=== PATIENT | female | born 1975 | race Caucasian/White ===

== ENCOUNTER 2019-08-18 22:44 | Emergency (ER) | payer OTHER, SELFPAY ==
[2019-08-18 23:05] VITALS: BP 154/73; PULSE 88; RESP 18; TEMP 36.6; O2SAT 99; BMI 31.1
[2019-08-19 04:26] VITALS: BP 129/75; PULSE 74; RESP 18; TEMP 36.6; O2SAT 97
[2019-08-19 04:29] LABS: Add Manual Diff / Slide Review NO; Basophils Absolute Auto 100 /uL (0-100); Basophils Percent Auto 0.7 % (0-2); Eosinophils Absolute Auto 200 /uL (0-450); Eosinophils Percent Auto 2.3 % (2-4); Hematocrit 39.2 % (36-46); Hemoglobin 12.8 g/dL (12.0-16.0); Lymphocytes Absolute Auto 3200 /uL (1100-4500); Lymphocytes Percent Auto 30.1 % (25-40); Mean Corpuscular HGB Conc 32.5 % (30-36); Mean Corpuscular Hemoglobin 26.4 PG (26-34); Mean Corpuscular Volume 81.2 fL (80-100); Monocytes Absolute Auto 700 /uL (0-900); Monocytes Percent Auto 6.7 % (3-14); Neutrophils Absolute Auto 6500 /uL (1500-7000); Neutrophils Percent Auto 60.2 % (50-75); Platelet Count 340 X10^3/uL (150-400); Red Blood Cell Count 4.83 X10^6/uL (4.0-5.2); Red Cell Distribution Width 15.3 % (11.6-14.8); White Blood Cell Count 10.8 X10^3/uL (4.5-11.0)
--- NOTE | 2019-08-19 04:29 | ED_ITS ---
HPI - Female Genitourinary General Chief complaint: Urogenital-Female Stated complaint: sharp shooting pains rt side to back Time Seen by Provider: 08/19/19 04:28 Source: patient Mode of arrival: Ambulatory Limitations: no limitations History of Present Illness HPI Narrative: 44-year-old female comes emergency complaint of shooting pains on the right side of her back. Patient states it started over the last day. She has not had fevers she has been nauseated she has not been vomiting. She states she has had no big changes in bowel movements other than she has been having some blood in her stool that is bright red the past week intermittently. She does not complain of any right lower quadrant pain. States the pain is more in the flank back region. She states that she has had some free group Q-wave no u rgency or dysuria. She has not noticed any color change to her urine. She has a history of hysterectomy and has had EGD and colonoscopy and was told that she had an ulcer in her small intestine and was on multiple medications in the past several years ago. She states at that time she had a lot of heartburn type symptoms and that this feels different. She is allergic to Wellbutrin, denies tobacco, alcohol or illicit. She is accompanied by her . Related Data Allergies Allergy/AdvReac Type Severity Reaction Status Date / Time bupropion [From Wellbutrin] Allergy Rash Verified 08/18/19 23:09 Review of Systems Review of Systems ROS Unobtainable: All systems reviewed & are unremarkable except as noted in HPI and below Patient History alcohol intake frequency: 0-2 drinks per day Substance Use Type: does not use Exam Narrative Exam Narrative: GENERAL: Alert and oriented x three, obese, well-appearing female in mild distress. HEENT: Head normocephalic, atraumatic, EOMI, pupils reactive, face symmetric, moist mucous membranes NECK: Supple, full range of motion CARDIOVASCULAR: Regular rate and rhythm without murmurs, rubs or gallops. RESPIRATORY: Breath sounds equal bilaterally, no wheezes rales or rhonchi. ABDOMEN: Soft, patient has mild right upper quadrant tenderness notice as well as left lower quadrant tenderness. Normoactive bowel sounds all 4 quadrants. No guarding or rebound, rigidity, no mass. Nondistended : No CVA tenderness bilaterally. EXTREMITIES: Normal range of motion, no clubbing or edema. Neurovascularly intact NEUROLOGICAL: Cranial nerves II through XII grossly intact. Moving all extremities SKIN: Warm, dry, no petechiae, no rashes or lesions. Initial Vital Signs Initial Vital Signs: Vital Signs Temperature 97.9 F 08/18/19 23:05 Pulse Rate 88 08/18/19 23:05 Respiratory Rate 18 08/18/19 23:05 Blood Pressure 154/73 H 08/18/19 23:05 Pulse Oximetry 99 08/18/19 23:05 Course Orders Ordered: ED Orders 08/19/19 04:15 Complete Blood Count AUTO DIFF Stat Comprehensive Metabolic Panel Stat Lipase Stat 08/19/19 04:40 CT kidney ureter bladder (KUB) Stat Discontinued Medications Hydrocodone Bitart/Acetaminophen ([place] 5/325) 1 tab PO NOW ONE Stop: 08/19/19 04:41 Last Admin: 08/19/19 04:45 Dose: 1 tab Documented by: EVERARDO Tramadol HCl (Ultram 50mg Prepack) 1 bottle MISC SEEINSTR ONE Stop: 08/19/19 05:53 Last Admin: 08/19/19 06:06 Dose: 1 bottle Documented by: EVERARDO Vital Signs Vital signs: Vital Signs - 8 hr 08/18/19 23:05 08/19/19 04:26 08/19/19 05:30 Temperature 97.9 F 97.9 F Pulse Rate 88 74 77 Respiratory Rate 18 18 18 Blood Pressure 154/73 H Blood Pressure [Left Arm] 129/75 113/69 Pulse Oximetry 99 97 99 MDM - Female Genitourinary Lab Data Attestation: I reviewed the patient's lab results. Result diagrams: 08/19/19 04:15 08/19/19 04:15 Labs: Lab Results 08/19/19 08/19/19 Range/Units 04:15 04:15 WBC 10.8 (4.5-11.0) X10^3/uL RBC 4.83 (4.0-5.2) X10^6/uL Hgb 12.8 (12.0-16.0) g/dL Hct 39.2 (36-46) % MCV 81.2 (80-100) fL MCH 26.4 (26-34) PG MCHC 32.5 (30-36) % RDW 15.3 H (11.6-14.8) % Plt Count 340 (150-400) X10^3/uL Neut % (Auto) 60.2 (50-75) % Lymph % (Auto) 30.1 (25-40) % [place] % (Auto) 6.7 (3-14) % Eos % (Auto) 2.3 (2-4) % Baso % (Auto) 0.7 (0-2) % Neut # (Auto) 6500 (2570-0664) /uL Lymph # (Auto) 3200 (1636-4823) /uL [place] # (Auto) 700 (0-900) /uL Eos # (Auto) 200 (0-450) /uL Baso # (Auto) 100 (0-100) /uL Sodium 140 (137-145) mmol/L Potassium 4.2 (3.4-5.1) mmol/L Chloride 104 (98-107) mmol/L Carbon Dioxide 26 (22-32) mmol/L BUN 12 (7-17) mg/dL Creatinine 0.80 (0.52-1.04) mg/dL Estimated GFR > 60.0 (>60) mL/min BUN/Creatinine Ratio 15.0 (6-22) Glucose 121 H (70-100) mg/dL Calcium 9.4 (8.4-10.2) mg/dL Total Bilirubin 0.3 (0.2-1.3) mg/dL AST 24 (14-36) IU/L ALT 21 (<35) IU/L Alkaline Phosphatase 102 (38-126) U/L Total Protein 8.0 (6.3-8.2) g/dL Albumin 4.4 (3.5-5.0) g/dL Globulin 3.6 (1.7-4.1) g/dL Albumin/Globulin Ratio 1.2 (1.0-2.8) Lipase 72 (23-300) U/L Point of Care Testing Test Results Negative Urine Dip Bedside Urine Glucose Negative Bedside Urine Bilirubin - Negative Bedside Urine Ketone - Negative Urine Specific [place] 1.010 Bedside Urine Occult Blood - Negative Bedside Urine pH 6.0 Bedside Urine Protein - Negative Bedside Urine Urobilinogen - Negative Bedside Urine Nitrite - Negative Bedside Urine Leukocytes - Negative Esterase Imaging Data CT scan - abdomen/pelvis: Radiologist's Impression: Mild hepatic steatosis with borderline hepatomegaly, constipation, small sliding hiatal hernia and fat containing umbilical hernia. Severely dysplastic left kidney. MDM Narrative Medical decision making narrative: Discussed with patient lab do not show any major abnormalities glucose is 121. Patient does have some hepatic steatosis, possible constipation changes fat containing umbilical hernia the severely dysplastic left kidney which patient was aware of. Patient's urine is negative with a negative . Patient received a dose of [place] which will not help any constipation she is having the she did have some blood in her stool and discussed she should likely have with colonoscopy repeated as it has been several years. Patient PCP is through the [facility] and she will f/u to have referral for scope, her last one was 2 years ago. Discussed return precautions. Tylenol prn for pain and may add ultram for breakthrough although should take stool softener. Patient feels comfortable with plan. Discharge Plan Departure Patient Disposition: Home Clinical Impression: Abdominal pain Qualifiers: Abdominal location: generalized Qualified Code(s): R10.84 - Generalized abdominal pain Instructions: DI for Abdominal Pain-Adult Activity Restrictions/Additional Instructions: Follow-up with your physician in the next 24-48 hours for recheck. Your labs do not show any major abnormalities, urine did not show any signs of infection today. CT shows some hepatic steatosis which could possibly cause some right upper quadrant pain but would be unlikely to cause left lower quadrant pain. Your left kidney is absent with a small amount dysplastic tissue and there does seem to be some changes that would be consistent with a small fat containing umbilical hernia which may be causing some of her discomfort. Take pain medication as prescribed, this medication can make you sleepy do not drive, perform hazardous activities or make any major decisions. Take a stool softener with this medication. Return to the ER for fevers greater 100.4 F, persistent vomiting, worsening bloody stools, worsening abdominal pain, flank pain, lightheadedness or passing out review new or concerning symptoms
[2019-08-19 04:36] LABS: Alanine Aminotransferase 21 IU/L (<35); Albumin 4.4 g/dL (3.5-5.0); Albumin Globulin Ratio 1.2 (1.0-2.8); Alkaline Phosphatase 102 U/L (38-126); Aspartate Aminotransferase 24 IU/L (14-36); Bilirubin Total 0.3 mg/dL (0.2-1.3); Blood Urea Nitrogen 12 mg/dL (7-17); Calcium 9.4 mg/dL (8.4-10.2); Carbon Dioxide 26 mmol/L (22-32); Chloride 104 mmol/L (98-107); Estimated Glomerular Filt Rate > 60.0 mL/min (>60); Globulin 3.6 g/dL (1.7-4.1); Glucose 121 mg/dL (70-100); HEMOLYSIS < 15 (0-50); Lipase 72 U/L (23-300); Potassium 4.2 mmol/L (3.4-5.1); Sodium 140 mmol/L (137-145)
--- NOTE | 2019-08-19 04:40 | DI.CT.S_ITS ---
PROCEDURE: CT KIDNEY URETER BLADDER (KUB) INDICATIONS: right flank pain, no hematuria, blood in stool TECHNIQUE: Noncontrast 5 mm thick sections acquired from the diaphragms to the symphysis. 5 mm thick coronal and sagittal reformats were then performed. For radiation dose reduction, the following was used: automated exposure control, adjustment of mA and/or kV according to patient size. COMPARISON: None. FINDINGS: Image quality: Excellent. Lung bases: Lung bases are clear. Heart size is normal. Small hiatal hernia. Urinary system: The right kidney is normal size without nephrolithiasis or hydronephrosis. The left kidney is absent. No hydroureter or ureteral calcifications. Normal urinary bladder wall thickness. No bladder calcifications. Other solid organs: Liver is mildly enlarged and minimally hypodense. Gallbladder appears normal. Pancreas is normal in contours. Spleen is normal in size. No adrenal nodules. Peritoneum and bowel: Unenhanced bowel loops demonstrate normal wall thickness and caliber. Normal appendix. No free fluid or air. Nodes and vessels: No retroperitoneal or mesenteric adenopathy by size criteria. Aorta and inferior vena cava are normal in caliber. Abdominal wall: Tiny fat containing umbilical hernia. Pelvis: No free pelvic fluid. No inguinal hernias or adenopathy. The uterus is absent. Bones: No suspicious bony lesions. No vertebral body compression fractures. IMPRESSION: 1. No CT evidence of acute process. 2. No obstructive uropathy or urinary calcifications. 3. Absent or severely atrophic left kidney and surgically absent uterus. 4. Minor hepatomegaly and hepatic steatosis. 5. Small hiatal hernia. 6. Concordant with preliminary report. Dictated by: Hollie Arias M.D. on 08/19/2019 at 8:09 Approved by: Hollie Arias M.D. on 08/19/2019 at 8:16
[2019-08-19] MEDS: HYDROCODONE/ACET 5/325 TABLET 1 TAB PO (04:45)
[2019-08-19 05:30] VITALS: BP 113/69; PULSE 77; RESP 18; O2SAT 99
[2019-08-19] MEDS: TRAMADOL 50 MG PREPACK 1 BOTTLE MISC (06:06)
[2019-08-19 06:36] VITALS: BP 112/68; PULSE 73; RESP 18; O2SAT 97
== END 2019-08-19 06:37 | disposition home or self-care (01) ==
PROVIDERS: Emergency Provider Emergency Medicine
DX: R10.84 Generalized abdominal pain (principal); K92.1 Melena
CPT/HCPCS: 36415; 74176; 80053; 81003; 81025; 83690; 85025; 99283; 99284

== ENCOUNTER 2019-08-20 14:32 | Emergency (ER) | payer OTHER, SELFPAY ==
[2019-08-20 14:39] VITALS: BP 141/84; PULSE 83; RESP 20; TEMP 36.8; O2SAT 99; BMI 31.1
--- NOTE | 2019-08-20 15:17 | ED.ABDPAIN ---
HPI - Abdominal Pain <DARYA Matthew - Last Filed: 08/20/19 22:10> General Chief Complaint: Abdominal Pain Stated Complaint: right side abdominal pain, blood in stool Time Seen by Provider: 08/20/19 14:35 Source: patient Mode of arrival: Ambulatory Limitations: no limitations History of Present Illness HPI narrative: This is a 44-year-old female, nonsmoker, who presents to ED with spouse with chief complaint of right upper quadrant and lateral side pain. She was evaluated in ED 2 nights ago on Sunday with similar discomfort in her right upper quadrant/side/flank discomfort. At that time, patient was told she has constipation, fat containing umbilical hernia, hepatic steatosis and severely dysplastic left kidney which patient is also aware of. Patient reports resolved urinary frequency which she experienced on Sunday. She feels little vertigo-like dizziness which she has history of. She denies fever, chills, nausea or vomiting. Patient reports the pain is pretty constant cramping and sharp in character and rates as 7/10 at this time. She was discharged to home with the tramadol but she has not started the medications. The difference she noticed today was bright rectal bleeding when she had flatulence earlier today. She had 1 bowel movement at work and noticed bright red rectal bleeding in a toilet, toilet tissue when she white with clots. Patient states she has known hemorrhoids and it comes and goes she had small bright red rectal bleeding once or twice last week when she wiped after the bowel movements. Patient denies chest pain, breathing difficulty, fainting episode. Patient denies family or personal history of colon cancer. Related Data Allergies Allergy/AdvReac Type Severity Reaction Status Date / Time bupropion [From Wellbutrin] Allergy Rash Verified 08/18/19 23:09 Review of Systems <DARYA Matthew - Last Filed: 08/20/19 22:10> Review of Systems Narrative: General: Denies fever, chills, fatigue, malaise, sweats. HEENT: Denies sinus pain, ear pain, sore throat, difficulty swallowing, (+) dizziness. Respiratory: Denies dyspnea, cough, wheezing, hemoptysis, sputum. Cardiovascular: Denies chest pain, palpitations, orthopnea, edema. Gastrointestinal: See HPI : Denies dysuria, (+) resolved one day of urinary frequency, incontinence, hematuria, urinary retention. Musculoskeletal: Denies weakness, joint pain or bony pain. Skin: Denies rash, skin lesions, or other. Neurologic: Denies weakness, headache, numbness, change in speech, confusion, seizures, incoordination. Psychiatric: No concerning psychosocial issues. 12-point review of systems is negative except for those stated above. Patient History <DARYA Matthew - Last Filed: 08/20/19 22:10> Medical History (Updated 08/20/19 @ 18:40 by DARYA Matthew) Constipation (Acute) Hemorrhoids (Acute) Migraine headache (Acute) Surgical History (Updated 08/20/19 @ 15:25 by DARYA Matthew) H/O: hysterectomy (Acute) Social History Smoking Status: Never smoker Smoking Status: Never smoker alcohol intake frequency: a few times a month Substance Use Type: does not use Exam <DARYA Matthew - Last Filed: 08/20/19 22:10> Narrative Exam Narrative: GEN: Alert, oriented x 3, well appearing and nourished, and in no acute distress. Head: Normal cephalic, atraumatic. No scalp or temporal tenderness, palpable mass or rash. EYES: Pupils are equal, round, and reactive to light and accommodation. Extraocular muscles are intact bilaterally. There is no subconjunctival hemorrhage, exudate and sclera non-icteric. ENT: Hearing grossly intact. Nose without bleeding, purulent discharge or deviation. Mucous membrane moist, no mucosal lesion. Throat without erythema, tonsillar hypertrophy or exudate. Uvula in midline, airway patent. Neck: Trachea in midline. No JVD, non-tender without lymphadenopathy. No masses or thyroid megaly. Supple, non-tender and no meningeal signs. CARDIAC: Normal regular rate and rhythm without murmurs, gallops, or rubs. No chest wall tenderness. No peripheral edema, cyanosis or pallor. Capillary refill is less than 2 seconds. RESPIRATORY: Lungs are clear to auscultate bilaterally. No cough, wheezes, rales, or rhonchi. No stridor, respiratory distress, increase work of breathing, or accessary muscle used. ABD: Abdomen soft, obese, TTP in right upper lateral quadrant below lower ribs and non-distended. No guarding or rebound tenderness to palpate. Bowel sounds are normal in all 4 quadrants. There is no palpable masses or organomegaly. EXT: Full painless ROM of all extremities with no loss of sensation, strength, effusion or edema. SKIN: Warm, dry, normal color for patient. No erythema, lesions or rash over visible areas. BACK: Nontender without deformity or crepitance. No flank tenderness. NEUROLOGICAL: Alert and oriented to place, time and person. Sensation and motor function intact bilaterally. No facial droops, dysphasia. PSYCHIATRIC: Good judgement and reason, without hallucinations, abnormal affect or abnormal behaviors during the examination. Initial Vital Signs Initial Vital Signs: Vital Signs Temperature 98.3 F 08/20/19 14:39 Pulse Rate 83 08/20/19 14:39 Respiratory Rate 08/20/19 14:39 Blood Pressure 141/84 H 08/20/19 14:39 Pulse Oximetry 99 08/20/19 14:39 <Miguel Mays DO - Last Filed: 08/21/19 08:53> Initial Vital Signs Initial Vital Signs: Vital Signs Temperature 98.3 F 08/20/19 14:39 Pulse Rate 83 08/20/19 14:39 Respiratory Rate 08/20/19 14:39 Blood Pressure 141/84 H 08/20/19 14:39 Pulse Oximetry 99 08/20/19 14:39 Scores <ELIZABETH MatthewP - Last Filed: 08/20/19 22:10> GCS [place] coma scale eye opening: Spontaneous [place] coma scale verbal response: Orientated [place] coma scale motor response: Obey commands [place] coma scale total score: 15 Course <DARYA Matthew Last Filed: 08/20/19 22:10> Orders Ordered: Discontinued Medications Sodium Chloride (Normal Saline 0.9%) 1,000 mls @ 150 mls/hr IV CONT RITO Last Admin: 08/20/19 15:46 Dose: 150 mls/hr Documented by: CAMERON Vital Signs Vital signs: Vital Signs - 8 hr 08/20/19 14:39 08/20/19 17:01 08/20/19 19:16 Temperature 98.3 F Pulse Rate 75 73 Pulse Rate [Right] 83 Respiratory Rate 20 Blood Pressure 123/68 Blood Pressure [Right Arm] 141/84 H 141/78 H Pulse Oximetry 99 98 99 <Miguel Mays DO - Last Filed: 08/21/19 08:53> Orders Ordered: Discontinued Medications Sodium Chloride (Normal Saline 0.9%) 1,000 mls @ 150 mls/hr IV CONT RITO Last Admin: 08/20/19 15:46 Dose: 150 mls/hr Documented by: CAMERON Vital Signs Vital signs: Vital Signs - 8 hr 08/20/19 14:39 08/20/19 17:01 08/20/19 19:16 Temperature 98.3 F Pulse Rate 75 73 Pulse Rate [Right] 83 Respiratory Rate 20 Blood Pressure 123/68 Blood Pressure [Right Arm] 141/84 H 141/78 H Pulse Oximetry 99 98 99 MDM - Abdominal Pain <DARYA Matthew - Last Filed: 08/20/19 22:10> Differential Diagnosis Differential diagnosis: Likely abdominal pain, constipation and other (Hemorrhoids, rectal fissure, gallstone, liver disease,) Medical Records Attestation: I reviewed the patient's medical records. Lab Data Attestation: I reviewed the patient's lab results. Result diagrams: 08/20/19 15:22 08/20/19 15:22 Labs: Lab Results 08/20/19 08/20/19 08/20/19 Range/Units 15:22 15:22 15:22 WBC 11.7 H (4.5-11.0) X10^3/uL RBC 4.64 (4.0-5.2) X10^6/uL Hgb 12.2 (12.0-16.0) g/dL Hct 37.2 (36-46) % MCV 80.1 (80-100) fL MCH 26.2 (26-34) PG MCHC 32.7 (30-36) % RDW 15.2 H (11.6-14.8) % Plt Count 342 (150-400) X10^3/uL Neut % (Auto) 71.9 (50-75) % Lymph % (Auto) 20.9 L (25-40) % [place] % (Auto) 5.4 (3-14) % Eos % (Auto) 1.1 L (2-4) % Baso % (Auto) 0.7 (0-2) % Neut # (Auto) 8400 H (8405-3053) /uL Lymph # (Auto) 2400 (6701-9243) /uL [place] # (Auto) 600 (0-900) /uL Eos # (Auto) 100 (0-450) /uL Baso # (Auto) 100 (0-100) /uL PT 12.6 (10.1-12.7) SECONDS INR 1.1 (0.9-1.3) APTT 33 (26.4-36.2) SECONDS Sodium 139 (137-145) mmol/L Potassium 3.8 (3.4-5.1) mmol/L Chloride 104 (98-107) mmol/L Carbon Dioxide 25 (22-32) mmol/L BUN 10 (7-17) mg/dL Creatinine 0.80 (0.52-1.04) mg/dL Estimated GFR > 60.0 (>60) mL/min BUN/Creatinine Ratio 12.5 (6-22) Glucose 104 H (70-100) mg/dL Calcium 9.4 (8.4-10.2) mg/dL Total Bilirubin 0.4 (0.2-1.3) mg/dL AST 30 (14-36) IU/L ALT 22 (<35) IU/L Alkaline Phosphatase 88 (38-126) U/L Total Protein 7.8 (6.3-8.2) g/dL Albumin 4.4 (3.5-5.0) g/dL Globulin 3.4 (1.7-4.1) g/dL Albumin/Globulin Ratio 1.3 (1.0-2.8) Lipase 47 (23-300) U/L Imaging Data US - abdomen: Radiologist's Impression: [address] [address] Ultrasound Report Signed Patient: Chastity Cramer [facility]#: [id number] : 1975Acct:[id number] Age/Sex: 44 / FDate of Service: 08/20/19 Loc: ED Accession Number: [id number] Procedure: US abdomen limited Ordering Provider: Surya Cohen PROCEDURE: US ABDOMEN LIMITED INDICATIONS: UPPER ABD PAIN, RUQ TECHNIQUE: Real-time focused scanning was performed of the abdomen, with image documentation. COMPARISON: [facility], CT, CT KIDNEY URETER BLADDER (KUB), 08/19/2019, 4:43. FINDINGS: Liver has a normal echotexture. No focal liver masses. Gallbladder is unremarkable. No stones or gallbladder wall thickening or fluid around the gallbladder Ryan sign. Gallbladder wall measures 1.9 mm. No dilated ducts. Common bile duct measures 2.8 mm. Visualized portions of the pancreas are unremarkable. Right kidney measures 13.8 cm. No stones identified. No hydronephrosis. IMPRESSION: Unremarkable right upper quadrant ultrasound. Dictated by: Satinder Charles M.D. on 08/20/2019 at 17:29 Approved by: Satinder Charles M.D. on 08/20/2019 at 17:31 MDM Narrative Medical decision making narrative: 44-year-old female return to ED after she was evaluated in [facility] ER 2 days ago with similar symptoms but today she noticed increasing bright red rectal bleeding with bowel movements when she had flatulence and bowel movement at work. Patient is hemodynamically stable without symptoms. Patient reports right upper quadrant and side pain and had not taken any medication, Tramadol, she was discharged to home with. Patient does report has history of external hemorrhoids. Physical exam was benign. Abdomen was soft, nondistended, obese, without rebound tenderness and intact bowel sounds. H&H is stable today as 37.2/80.1 with very mild increase in white count as 11.7. Normal coags results. Unremarkable chemistry results including liver function tests and bilirubin. Lipase was normal. To CT test 2 nights ago it indicated minor hepatomegaly and hepatic steatosis with small hiatal hernia. Today ultrasound on upper abdomen abdomen was obtained and indicates liver with normal echotexture and no liver masses. Gallbladder was unremarkable without stones or wall thickening or fluid around gallbladder. There was no dilated common bile duct. Pancreas was unremarkable. There was no hydronephrosis or stones visualized for kidney. Ultrasound was unremarkable today. Rectal exam showed superficial small fissure at 12:00 p.m. in her rectum without danni blood appreciated. Hemoccult test was negative. For and infection 2 days ago and repeat urine test was not done today. Patient advised to follow-up with primary care physician to follow-up with colonoscopy referral. Patient advised to avoid constipation. Patient advised to take [id number] Tylenol as needed for discomfort and tramadol for severe pain. Discussed with the patient and patient verbalized understanding and in agreement with treatment plan. Work off note provided for 2 days. <Miguel Mays DO - Last Filed: 08/21/19 08:53> Lab Data Labs: Lab Results 08/20/19 08/20/19 08/20/19 Range/Units 15:22 15:22 15:22 WBC 11.7 H (4.5-11.0) X10^3/uL RBC 4.64 (4.0-5.2) X10^6/uL Hgb 12.2 (12.0-16.0) g/dL Hct 37.2 (36-46) % MCV 80.1 (80-100) fL MCH 26.2 (26-34) PG MCHC 32.7 (30-36) % RDW 15.2 H (11.6-14.8) % Plt Count 342 (150-400) X10^3/uL Neut % (Auto) 71.9 (50-75) % Lymph % (Auto) 20.9 L (25-40) % [place] % (Auto) 5.4 (3-14) % Eos % (Auto) 1.1 L (2-4) % Baso % (Auto) 0.7 (0-2) % Neut # (Auto) 8400 H (8132-1365) /uL Lymph # (Auto) 2400 (7821-9583) /uL [place] # (Auto) 600 (0-900) /uL Eos # (Auto) 100 (0-450) /uL Baso # (Auto) 100 (0-100) /uL PT 12.6 (10.1-12.7) SECONDS INR 1.1 (0.9-1.3) APTT 33 (26.4-36.2) SECONDS Sodium 139 (137-145) mmol/L Potassium 3.8 (3.4-5.1) mmol/L Chloride 104 (98-107) mmol/L Carbon Dioxide 25 (22-32) mmol/L BUN 10 (7-17) mg/dL Creatinine 0.80 (0.52-1.04) mg/dL Estimated GFR > 60.0 (>60) mL/min BUN/Creatinine Ratio 12.5 (6-22) Glucose 104 H (70-100) mg/dL Calcium 9.4 (8.4-10.2) mg/dL Total Bilirubin 0.4 (0.2-1.3) mg/dL AST 30 (14-36) IU/L ALT 22 (<35) IU/L Alkaline Phosphatase 88 (38-126) U/L Total Protein 7.8 (6.3-8.2) g/dL Albumin 4.4 (3.5-5.0) g/dL Globulin 3.4 (1.7-4.1) g/dL Albumin/Globulin Ratio 1.3 (1.0-2.8) Lipase 47 (23-300) U/L Discharge Plan Departure Patient Disposition: Home Clinical Impression: Bright red rectal bleeding, Abdominal pain, right upper quadrant Discharge Date/Time: 08/20/19 19:16 Instructions: DI for Abdominal Pain-Adult, DI for Rectal Bleeding Activity Restrictions/Additional Instructions: You have been diagnosed with [right upper quadrant abdominal discomfort, bright red rectal bleeding. Your blood tests were unremarkable today. Very mild increase WBC today of 11.7 min unremarkable chemistry with normal liver function test. Lipase was normal of 47. Is ultrasound of your abdomen was unremarkable with normal gallbladder, pancreas, kidney. Rectal exam showed small superficial facial in rectum with negative Hemoccult test.]. What to do: *Take your medications as directed. You can take tramadol that you were discharged to home with for pain management. Increase fluids, fiber in her diet to continue to have soft stool. *Follow up with your primary care provider in 2-3 days, call for an appointment. Please follow-up and it is likely you need a colonoscopy test. Let them know you were seen in the ED and that we asked you to be seen in follow up. *Return to ED if you have any new, worsening, or concerning symptoms, such as [chest pain, breathing difficulty, lightheadedness, increasing rectal bleeding, or any acute concerns]. Referrals: [facility] [Outside] Stand Alone Forms: Work Release Note
[2019-08-20 15:33] LABS: Add Manual Diff / Slide Review NO; Basophils Absolute Auto 100 /uL (0-100); Basophils Percent Auto 0.7 % (0-2); Eosinophils Absolute Auto 100 /uL (0-450); Eosinophils Percent Auto 1.1 % (2-4); Hematocrit 37.2 % (36-46); Hemoglobin 12.2 g/dL (12.0-16.0); Lymphocytes Absolute Auto 2400 /uL (1100-4500); Lymphocytes Percent Auto 20.9 % (25-40); Mean Corpuscular HGB Conc 32.7 % (30-36); Mean Corpuscular Hemoglobin 26.2 PG (26-34); Mean Corpuscular Volume 80.1 fL (80-100); Monocytes Absolute Auto 600 /uL (0-900); Monocytes Percent Auto 5.4 % (3-14); Neutrophils Absolute Auto 8400 /uL (1500-7000); Neutrophils Percent Auto 71.9 % (50-75); Platelet Count 342 X10^3/uL (150-400); Red Blood Cell Count 4.64 X10^6/uL (4.0-5.2); Red Cell Distribution Width 15.2 % (11.6-14.8); White Blood Cell Count 11.7 X10^3/uL (4.5-11.0)
[2019-08-20 15:40] LABS: INR 1.1 (0.9-1.3); Prothrombin Time 12.6 SECONDS (10.1-12.7)
[2019-08-20 15:42] LABS: PTT Partial Thromboplastin Tim 33 SECONDS (26.4-36.2)
[2019-08-20 15:45] LABS: Alanine Aminotransferase 22 IU/L (<35); Albumin 4.4 g/dL (3.5-5.0); Albumin Globulin Ratio 1.3 (1.0-2.8); Alkaline Phosphatase 88 U/L (38-126); Aspartate Aminotransferase 30 IU/L (14-36); BUN Creatinine Ratio 12.5 (6-22); Bilirubin Total 0.4 mg/dL (0.2-1.3); Blood Urea Nitrogen 10 mg/dL (7-17); Calcium 9.4 mg/dL (8.4-10.2); Carbon Dioxide 25 mmol/L (22-32); Chloride 104 mmol/L (98-107); Estimated Glomerular Filt Rate > 60.0 mL/min (>60); Globulin 3.4 g/dL (1.7-4.1); Glucose 104 mg/dL (70-100); HEMOLYSIS 17 (0-50); Lipase 47 U/L (23-300); Potassium 3.8 mmol/L (3.4-5.1); Sodium 139 mmol/L (137-145); Total Protein 7.8 g/dL (6.3-8.2)
[2019-08-20] MEDS: SODIUM CHLORIDE 0.9% 1,000 ML 150 ML IV (15:46)
--- NOTE | 2019-08-20 15:48 | DI.US.S_ITS ---
PROCEDURE: US ABDOMEN LIMITED INDICATIONS: UPPER ABD PAIN, RUQ TECHNIQUE: Real-time focused scanning was performed of the abdomen, with image documentation. COMPARISON: [facility], CT, CT KIDNEY URETER BLADDER (KUB), 08/19/2019, 4:43. FINDINGS: Liver has a normal echotexture. No focal liver masses. Gallbladder is unremarkable. No stones or gallbladder wall thickening or fluid around the gallbladder Ryan sign. Gallbladder wall measures 1.9 mm. No dilated ducts. Common bile duct measures 2.8 mm. Visualized portions of the pancreas are unremarkable. Right kidney measures 13.8 cm. No stones identified. No hydronephrosis. IMPRESSION: Unremarkable right upper quadrant ultrasound. Dictated by: Satinder Charles M.D. on 08/20/2019 at 17:29 Approved by: Satinder Charles M.D. on 08/20/2019 at 17:31
[2019-08-20 17:01] VITALS: BP 141/78; PULSE 75; O2SAT 98
[2019-08-20 19:16] VITALS: BP 123/68; PULSE 73; O2SAT 99
== END 2019-08-20 19:16 | disposition home or self-care (01) ==
PROVIDERS: Emergency Provider Nurse Practitioner Family
DX: K62.5 Hemorrhage of anus and rectum (principal); R10.11 Right upper quadrant pain
CPT/HCPCS: 36415; 76705; 80053; 83690; 85025; 85610; 85730; 99284